=== PATIENT | male | born 1930 | race African-American/Black ===

== ENCOUNTER → 2019-03-14 | Outpatient (CLI) | payer MEDICARE ==
--- NOTE | 2019-03-14 16:17 | PCVCIMAG ---
EXAM: BILATERAL LOWER EXTREMITY ARTERIAL DUPLEX INDICATION: Peripheral Arterial Disease. Leg pain. FINDINGS: Right Leg: Common femoral and profunda femoral arteries are patent. Superficial femoral and popliteal artery are patent. Increased systolic velocity 459 cm/s tibioperoneal trunk consistent with 95% stenosis. The mid/distal anterior tibial artery is occluded. The peroneal artery and posterior tibial arteries are patent. Left Leg: Common femoral profunda femoral arteries are patent. Segmental occlusion distal [place] superficial femoral artery. Refilling of the popliteal artery without stenosis. Occlusion throughout the anterior tibial artery. The peroneal and posterior tibial arteries are patent. 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 Segmental occlusion distal [place] left superficial femoral artery. Occlusion mid/distal left anterior tibial artery. Results reviewed with Dr. Hollis. LOC:[id number]
== END | disposition home or self-care (01) ==
LOC: PCVCIMAG 13:38
PROVIDERS: ATTEND Nuclear Medicine Nuclear Cardiology
DX: I70.203 Unspecified atherosclerosis of native arteries of extremities, bilateral legs (principal)
CPT/HCPCS: 93925